=== PATIENT | female | born 1970 | race Caucasian/White ===

== ENCOUNTER 2022-04-26 22:55 | Emergency (ER) | payer BC ==
[2022-04-26 23:52] VITALS: RESP 18; TEMP 98.1
[2022-04-26] MEDS ORDERED: PROCHLORPERAZINE 5 MG TAB PO STA (23:57)
[2022-04-26] MEDS ORDERED: ETODOLAC 400 MG TAB PO STA (23:57)
[2022-04-26] MEDS ORDERED: lisinopriL 10 MG TAB PO STA (23:57)
[2022-04-26] MEDS ORDERED: diphenhydrAMINE 50 MG CAP PO STA (23:57)
--- NOTE | 2022-04-26 23:58 | ED ---
Headache HPI - General Chief Complaint: Headache Stated Complaint: Headache, High Blood Pressure Time Seen by Provider: 04/26/22 23:56 Source: RN notes reviewed, old records reviewed Mode of arrival: ambulatory Limitations: no limitations - History of Present Illness Initial Comments: This is a 51-year-old female presents today for evaluation of headache she does have history of headaches but states very mildly worse started on low-dose to work and normal on the lawn earlier in the day. Patient does have blood pressure cuff at home due to her daughter have high blood pressure and her significant other having high blood pressure patient was presents here with elevated blood pressure headache. No nausea vomiting no neurological complaints and this is not the worse headache of her life. Patient believes she has had elevated blood pressure in the past she is just nervous started on medications. MD Complaint: headache -: unknown Onset Description: gradual Location: right, left, frontal Severity: mild Severity scale (1-10): 3 Quality: aching, pulsatile Consistency: intermittent Improves With: nothing Worsens With: none Context: recent URI Associated Symptoms: nausea Other Symptoms: eye pain/redness Treatments Prior to Arrival: none - Related Data Previous Rx's Medication Instructions Recorded Lisinopril [Prinivil] 10 mg PO DAILY #60 tab 04/27/22 Allergies Allergy/AdvReac Type Severity Reaction Status Date / Time Sulfa (Sulfonamide Allergy Rash/Hives Verified 04/26/22 23:52 Antibiotics) Review of Systems ROS Statement: Those systems with pertinent positive or pertinent negative responses have been documented in the HPI. ROS Other: All systems not noted in ROS Statement are negative. Past Medical History Past Medical History: Asthma, Thyroid Disorder History of Any Multi-Drug Resistant Organisms: None Reported Past Surgical History: Breast Surgery Past Psychological History: No Psychological Hx Reported Smoking Status: Never smoker Past Alcohol Use History: None Reported Past Drug Use History: None Reported General Exam General appearance: alert, in no apparent distress Head exam: Present: atraumatic, normocephalic, normal inspection Eye exam: Present: normal appearance, PERRL, EOMI. Absent: scleral icterus, conjunctival injection, periorbital swelling ENT exam: Present: normal exam, mucous membranes moist Neck exam: Present: normal inspection. Absent: tenderness, meningismus, lymphadenopathy Respiratory exam: Present: normal lung sounds bilaterally. Absent: respiratory distress, wheezes, rales, rhonchi, stridor Cardiovascular Exam: Present: regular rate, normal rhythm, normal heart sounds. Absent: systolic murmur, diastolic murmur, rubs, gallop, clicks GI/Abdominal exam: Present: soft, normal bowel sounds. Absent: distended, tenderness, guarding, rebound, rigid Extremities exam: Present: normal inspection, full ROM, normal capillary refill. Absent: tenderness, pedal edema, joint swelling, calf tenderness Back exam: Present: normal inspection Neurological exam: Present: alert, oriented X3, CN II-XII intact Psychiatric exam: Present: normal affect, normal mood Skin exam: Present: warm, dry, intact, normal color. Absent: rash Course Vital Signs 04/26/22 04/27/22 04/27/22 23:49 01:06 01:18 Temperature 98.1 F Pulse Rate 94 84 78 Respiratory 18 18 18 Rate Blood Pressure 202/101 166/95 141/90 O2 Sat by Pulse 98 96 Oximetry - Reevaluation(s) Reevaluation #1: 04/27/22 01:00 Medical record is reviewed Reevaluation #2: 04/27/22 01:00 Patient feels significantly improved here in the ER both headache and blood pressure Reevaluation #3: 04/27/22 01:00 Patient informed of results and questions answered Medical Decision Making - Medical Decision Making 51 female to the emergency department for evaluation of headache with elevated blood pressure. Headache now improved lab values EKG are negative. Patient's blood pressures improved and she feels improved for discharge home, patient states she needs a primary care physician - Lab Data Result diagrams: 04/27/22 00:06 04/27/22 00:06 Lab Results 04/27/22 04/27/22 04/27/22 Range/Units 00:06 00:06 00:06 WBC 10.1 (3.8-10.6) k/uL RBC 5.08 (3.80-5.40) m/uL Hgb 12.1 (11.4-16.0) gm/dL Hct 39.6 (34.0-46.0) % MCV 77.9 L (80.0-100.0) fL MCH 23.8 L (25.0-35.0) pg MCHC 30.5 L (31.0-37.0) g/dL RDW 18.4 H (11.5-15.5) % Plt Count 262 (150-450) k/uL MPV 8.2 Neutrophils % 65 % Lymphocytes % 25 % Monocytes % 5 % Eosinophils % 2 % Basophils % 1 % Neutrophils # 6.5 (1.3-7.7) k/uL Lymphocytes # 2.6 (1.0-4.8) k/uL Monocytes # 0.5 (0-1.0) k/uL Eosinophils # 0.2 (0-0.7) k/uL Basophils # 0.1 (0-0.2) k/uL Hypochromasia Slight Anisocytosis Slight Microcytosis Slight Sodium 137 (137-145) mmol/L Potassium 3.6 (3.5-5.1) mmol/L Chloride 105 (98-107) mmol/L Carbon Dioxide 24 (22-30) mmol/L Anion Gap 8 mmol/L BUN 18 H (7-17) mg/dL Creatinine 0.93 (0.52-1.04) mg/dL Est GFR (CKD-EPI)AfAm 83 (>60 ml/min/1.73 sqM) Est GFR (CKD-EPI)NonAf 72 (>60 ml/min/1.73 sqM) Glucose 84 (74-99) mg/dL Calcium 9.0 (8.4-10.2) mg/dL Phosphorus 3.7 (2.5-4.5) mg/dL Magnesium 2.0 (1.6-2.3) mg/dL Total Bilirubin 0.3 (0.2-1.3) mg/dL AST 22 (14-36) U/L ALT 20 (4-34) U/L Alkaline Phosphatase 49 (38-126) U/L Troponin I <0.012 (0.000-0.034) ng/mL Total Protein 7.0 (6.3-8.2) g/dL Albumin 4.3 (3.5-5.0) g/dL TSH 2.090 (0.465-4.680) mIU/L Urine Color Urine Appearance (Clear) Urine pH (5.0-8.0) Ur Specific [place] (1.001-1.035) Urine Protein (Negative) Urine Glucose (UA) (Negative) Urine Ketones (Negative) Urine Blood (Negative) Urine Nitrite (Negative) Urine Bilirubin (Negative) Urine Urobilinogen (<2.0) mg/dL Ur Leukocyte Esterase (Negative) Urine RBC (0-5) /hpf Urine WBC (0-5) /hpf Ur Squamous Epith Cells (0-4) /hpf Amorphous Sediment (None) /hpf Urine Mucus (None) /hpf 04/27/22 Range/Units 00:59 WBC (3.8-10.6) k/uL RBC (3.80-5.40) m/uL Hgb (11.4-16.0) gm/dL Hct (34.0-46.0) % MCV (80.0-100.0) fL MCH (25.0-35.0) pg MCHC (31.0-37.0) g/dL RDW (11.5-15.5) % Plt Count (150-450) k/uL MPV Neutrophils % % Lymphocytes % % Monocytes % % Eosinophils % % Basophils % % Neutrophils # (1.3-7.7) k/uL Lymphocytes # (1.0-4.8) k/uL Monocytes # (0-1.0) k/uL Eosinophils # (0-0.7) k/uL Basophils # (0-0.2) k/uL Hypochromasia Anisocytosis Microcytosis Sodium (137-145) mmol/L Potassium (3.5-5.1) mmol/L Chloride (98-107) mmol/L Carbon Dioxide (22-30) mmol/L Anion Gap mmol/L BUN (7-17) mg/dL Creatinine (0.52-1.04) mg/dL Est GFR (CKD-EPI)AfAm (>60 ml/min/1.73 sqM) Est GFR (CKD-EPI)NonAf (>60 ml/min/1.73 sqM) Glucose (74-99) mg/dL Calcium (8.4-10.2) mg/dL Phosphorus (2.5-4.5) mg/dL Magnesium (1.6-2.3) mg/dL Total Bilirubin (0.2-1.3) mg/dL AST (14-36) U/L ALT (4-34) U/L Alkaline Phosphatase (38-126) U/L Troponin I (0.000-0.034) ng/mL Total Protein (6.3-8.2) g/dL Albumin (3.5-5.0) g/dL TSH (0.465-4.680) mIU/L Urine Color Yellow Urine Appearance Cloudy H (Clear) Urine pH 6.5 (5.0-8.0) Ur Specific [place] 1.020 (1.001-1.035) Urine Protein Trace H (Negative) Urine Glucose (UA) Negative (Negative) Urine Ketones Negative (Negative) Urine Blood Moderate H (Negative) Urine Nitrite Negative (Negative) Urine Bilirubin Negative (Negative) Urine Urobilinogen <2.0 (<2.0) mg/dL Ur Leukocyte Esterase Negative (Negative) Urine RBC 2 (0-5) /hpf Urine WBC 3 (0-5) /hpf Ur Squamous Epith Cells 7 H (0-4) /hpf Amorphous Sediment Rare H (None) /hpf Urine Mucus Rare H (None) /hpf - EKG Data -: EKG Interpreted by Me (EKG is sinus rhythm 88 [address] 207 QRS 107 QTC 4:30) Disposition Clinical Impression: Hypertension Disposition: HOME SELF-CARE Condition: Good Instructions (If sedation given, give patient instructions): Hypertension (ED) Prescriptions: Lisinopril [Prinivil] 10 mg PO DAILY #60 tab Is patient prescribed a controlled substance at d/c from ED?: No Referrals: Angely Weathers DO [Primary Care Provider] - 1-2 days Haider Rosales MD [STAFF PHYSICIAN] - 1-2 days Augustin Villalpando MD [REFERRING] - 1-2 days Time of Disposition: 01:10
[2022-04-27 00:17] LABS: Anisocytosis Slight; Basophils # (A) 0.1 k/uL (0-0.2); Basophils % (A) 1 %; Eosinophils # (A) 0.2 k/uL (0-0.7); Eosinophils % (A) 2 %; HCT 39.6 % (34.0-46.0); HGB 12.1 gm/dL (11.4-16.0); Hypochromasia Slight; Lymphocytes # (A) 2.6 k/uL (1.0-4.8); Lymphocytes % (A) 25 %; MCH 23.8 pg (25.0-35.0); MCHC 30.5 g/dL (31.0-37.0); MCV 77.9 fL (80.0-100.0); Mean Platelet Volume 8.2; Microcytosis Slight; Monocytes # (A) 0.5 k/uL (0-1.0); Monocytes % (A) 5 %; Neutrophils # (A) 6.5 k/uL (1.3-7.7); Neutrophils % (A) 65 %; Platelet Count 262 k/uL (150-450); RBC 5.08 m/uL (3.80-5.40); RDW 18.4 % (11.5-15.5); WBC 10.1 k/uL (3.8-10.6)
[2022-04-27 00:27] LABS: Albumin 4.3 g/dL (3.5-5.0); Phosphorus 3.7 mg/dL (2.5-4.5); Potassium 3.6 mmol/L (3.5-5.1); Total Bilirubin 0.3 mg/dL (0.2-1.3)
[2022-04-27 01:24] LABS: Amorphous Sediment,Urine Rare /hpf; Appearance,Urine Cloudy (Clear); Bilirubin,Urine Negative (Negative); Blood,Urine Moderate (Negative); Color,Urine Yellow; Glucose,Urine (UA) Negative (Negative); Ketones,Urine Negative (Negative); Leukocyte Esterase,Urine Negative (Negative); Mucus,Urine Rare /hpf; Nitrite,Urine Negative (Negative); PH, Urine 6.5 (5.0-8.0); Protein,Urine Trace (Negative); RBC,Urine 2 /hpf (0-5); Squamous Epithelial Cell,Urine 7 /hpf (0-4); Urobilinogen,Urine <2.0 mg/dL (<2.0); WBC,Urine 3 /hpf (0-5)
[2022-04-27 02:03] VITALS: BP 151/93; PULSE 79
== END 2022-04-27 01:39 | disposition home or self-care (01) ==
LOC: EC 22:55
DX: I10 Essential (primary) hypertension (principal); R51.9 Headache, unspecified; J45.909 Unspecified asthma, uncomplicated; Z88.2 Allergy status to sulfonamides; R11.0 Nausea
CPT/HCPCS: 36415; 93005; 80053; 83735; 84100; 84443; 84484; 85025; 81001; 99284; S0183

== ENCOUNTER 2022-10-29 01:37 | Emergency (ER) | payer BC ==
[2022-10-29 02:06] VITALS: RESP 18
--- NOTE | 2022-10-29 03:46 | ED ---
Extremity Problem HPI - General Chief complaint: Extremity Problem,Nontraumatic Stated complaint: Left Elbow Pain Time Seen by Provider: 10/29/22 03:14 Source: patient, RN notes reviewed Mode of arrival: ambulatory Limitations: no limitations - History of Present Illness Initial comments: This is a pleasant 52-year-old female presents to emergency department complaining of pain to her left elbow. Patient states this started about 3 days ago. Patient then states she got some swelling to her left hand. Patient does have a history of lymphedema secondary to lymph node dissection of her left axilla from breast cancer. Patient denying any pain to her upper arm or forearm area. Patient denying any known injury or repetitive use. Patient is left-hand dominant. Patient pointing to the area of the lateral upper condyle. Pain is exacerbated by palpation and movement, alleviated by rest. No headache, no fever or chills, no changes in vision or hearing, no sore throat or difficulty with speech, no neck pain, no chest pain or shortness of breath, no abdominal pain, no nausea or vomiting, no changes in urination or bowel movements, no numbness or tingling, , no skin rashes or lesions. Patient states she also has swelling to her hand. No erythema. No rashes or lesions Past medical, surgical, social, and family history reviewed. MD Complaint: extremity pain, extremity swelling - Related Data Previous Rx's Medication Instructions Recorded lisinopriL [Prinivil] 10 mg PO DAILY #60 tab 04/27/22 methylPREDNISolone Dose Pack 4 mg PO DIRECTED #21 tab 10/29/22 [Medrol Dose Pack] Allergies Allergy/AdvReac Type Severity Reaction Status Date / Time Sulfa (Sulfonamide Allergy Rash/Hives Verified 10/29/22 02:06 Antibiotics) Review of Systems ROS Statement: Those systems with pertinent positive or pertinent negative responses have been documented in the HPI. ROS Other: All systems not noted in ROS Statement are negative. Past Medical History Past Medical History: Asthma, Thyroid Disorder Additional Past Medical History / Comment(s): lympadema History of Any Multi-Drug Resistant Organisms: None Reported Past Surgical History: Breast Surgery Past Psychological History: Depression Smoking Status: Never smoker Past Alcohol Use History: Rare Past Drug Use History: None Reported General Exam Limitations: no limitations General appearance: alert, in no apparent distress Head exam: Present: atraumatic, normocephalic, normal inspection Eye exam: Present: normal appearance, EOMI Neck exam: Present: normal inspection, full ROM. Absent: lymphadenopathy Respiratory exam: Present: normal lung sounds bilaterally. Absent: respiratory distress, wheezes, rales, rhonchi, stridor, chest wall tenderness, accessory muscle use Cardiovascular Exam: Present: regular rate, normal rhythm, normal heart sounds. Absent: systolic murmur, diastolic murmur, rubs, gallop, clicks GI/Abdominal exam: Present: soft. Absent: tenderness Left Shoulder Exam: Present: normal inspection, full ROM. Absent: tenderness Upper Arm exam: Present: normal inspection. Absent: tenderness, swelling Elbow exam: Present: full ROM, tenderness (Patient has tenderness over the lateral upper condyle and proximal forearm extensors, no erythema, no break in skin integrity, no rash or lesion). Absent: swelling, abrasion, laceration, ecchymosis, deformity, crepitus, dislocation, erythema, effusion, tenderness over radial head Forearm Wrist exam: Present: tenderness (Proximal forearm extensors near the lateral upper condyle). Absent: swelling, abrasion, laceration, ecchymosis, crepitus, dislocation, erythema, tenderness over anatomical snuff box Hand Wrist exam: Present: full ROM, swelling (Patient has swelling noted to the left hand. No erythema or infectious process noted). Absent: tenderness, abrasion, laceration, ecchymosis, deformity, crepitus, dislocation, erythema, amputation, nail avulsion, subungual hematoma Neuro motor exam: Present: wrist extension intact, thumb opposition intact, thumb IP flexion intact, thumb adduction intact, fingers 2-5 abduction intact Neurosensory exam: Present: radial nerve intact, ulnar nerve intact, median nerv e intact Vascular: Present: normal capillary refill. Absent: vascular compromise, Pallo, pulse deficit radial art, pulse deficit ulnar art Neurological exam: Present: alert, oriented X3, CN II-XII intact, normal gait. Absent: motor sensory deficit Psychiatric exam: Present: normal affect, normal mood Skin exam: Present: warm, dry, intact, normal color. Absent: rash Course Vital Signs 10/29/22 10/29/22 02:02 03:56 Temperature 97.5 F L 98.6 F Pulse Rate 80 76 Respiratory 18 18 Rate Blood Pressure 142/91 129/87 O2 Sat by Pulse 98 94 L Oximetry Medical Decision Making - Medical Decision Making Differential diagnosis: Lateral epicondylitis, radial tunnel syndrome, worsening lymphedema, this does not appear to be consistent with DVT. Does not appear to be consistent with infectious process. Patient's clinical findings somewhat consistent with lateral epicondylitis. Although radial tunnel syndrome is a possibility. We will have the patient follow-up with orthopedics. Discussed treatment plan with the patient. Patient concurs with this treatment plan. Will provide a short course of corticosteroids. Plain film x-rays ordered. We'll plan to treat conservatively with anti- inflammatory medication. Patient was told to return to the ER for any signs or symptoms worsen. Told to return immediately if any other problems arise. All questions answered. Treatment plan discussed. Patient in agreement Every effort has been made to ensure accuracy of this dictation. However, due to the limitations of electronic medical records and dictation devices, errors in charting still occur. Supervising physician Dr. Carbajal - Radiology Data Radiology results: pending, image reviewed Plain film x-rays of the left elbow and left forearm independently interpreted by me reveal no evidence of acute pathology. Radiology report is delayed. Disposition Clinical Impression: Radial tunnel syndrome of left upper extremity Disposition: HOME SELF-CARE Condition: Stable Instructions (If sedation given, give patient instructions): Tennis Elbow (ED), How to Use a Sling (ED) Additional Instructions: Follow-up with your regular physician as directed. Return to the ER immediately if any symptoms worsen, new symptoms arise, or any other problems develop. Prescriptions: methylPREDNISolone Dose Pack [Medrol Dose Pack] 4 mg PO DIRECTED #21 tab Is patient prescribed a controlled substance at d/c from ED?: No Referrals: Abraham Montilla MD [STAFF PHYSICIAN] - 10/31/22 Time of Disposition: 04:01
[2022-10-29] MEDS ORDERED: predniSONE 50 MG TAB PO STA (03:56)
[2022-10-29 03:57] VITALS: BP 129/87; PULSE 76; TEMP 98.6
[2022-10-29] MEDS ORDERED: HYDROcodone/APAP 5-325MG 1 EACH TAB PO STA (03:58)
[2022-10-29] MEDS ORDERED: ACET/COD 300 MG/30 MG STARTER PACK 6 TAB BTL PO STA (03:59)
--- NOTE | 2022-10-29 04:58 | XR ---
EXAMINATION TYPE: XR forearm LT DATE OF EXAM: 10/29/2022 COMPARISON: NONE HISTORY: Pain TECHNIQUE: 2 views FINDINGS: Radius and ulna appear intact. There is no evidence of fracture nor dislocation. Wrist join t is intact. IMPRESSION: Negative left forearm exam.
--- NOTE | 2022-10-29 04:58 | XR ---
EXAMINATION TYPE: XR elbow complete LT DATE OF EXAM: 10/29/2022 COMPARISON: NONE HISTORY: Pain and swelling TECHNIQUE: 3 views FINDINGS: I see no fracture nor dislocation. Joint spaces are normal. No sign of elbow joint effusion . IMPRESSION: Negative left elbow exam. No fracture.
== END 2022-10-29 04:09 | disposition home or self-care (01) ==
LOC: EC 01:37
DX: G56.32 Lesion of radial nerve, left upper limb (principal); F32.A Depression, unspecified; J45.909 Unspecified asthma, uncomplicated; Z88.2 Allergy status to sulfonamides
CPT/HCPCS: 73080; 73090; 99283; J7512

== ENCOUNTER → 2023-04-18 | Outpatient (CLI) | payer BC ==
--- NOTE | 2023-04-19 08:18 | MR ---
EXAMINATION TYPE: MR knee RT wo con DATE OF EXAM: 04/18/2023 COMPARISON: HISTORY: Right knee pain after jogging. TECHNIQUE: Multiplanar, multisequence imaging of the right knee is performed without IV contrast. FINDINGS: MEDIAL MENISCUS: Anterior and posterior horns are intact without tear. LATERAL MENISCUS: Anterior and posterior horns are intact without tear. CRUCIATE LIGAMENTS: The anterior and posterior cruciate ligaments are intact and unremarkable. COLLATERAL LIGAMENTS: The medial collateral ligament and lateral collateral ligament complex are inta ct and unremarkable. EXTENSOR MECHANISM: Visualized quadriceps and patellar tendons are intact. EFFUSION: Small joint effusion present. POPLITEAL CYST: No popliteal/tanner cyst. TRICOMPARTMENT SPACES: Mild degenerative narrowing medial patellofemoral joint space as well as the p atellofemoral joint space. CARTILAGE: Intact BONE MARROW SIGNAL: No focal abnormal marrow signal is appreciated. OTHER: No additional significant abnormality is appreciated. IMPRESSION: 1. No evidence for internal derangement. 2. Degenerative changes of osteoarthritis. Small joint effusion.
== END | disposition home or self-care (01) ==
LOC: RADMRIMAIN 14:14
PROVIDERS: ATTEND Internal Medicine
DX: M17.11 Unilateral primary osteoarthritis, right knee (principal); M25.461 Effusion, right knee

== ENCOUNTER → 2023-05-08 | Outpatient (CLI) | payer BC ==
[2023-05-08 21:33] LABS: T4, Free (Free Thyroxine) 1.43 ng/dL (0.80-1.80)
== END | disposition home or self-care (01) ==
LOC: LABWHC1 11:49
PROVIDERS: ATTEND Internal Medicine
DX: E03.9 Hypothyroidism, unspecified (principal)
CPT/HCPCS: 36415; 84439; 84443

== ENCOUNTER → 2023-10-17 | Outpatient (CLI) | payer BC ==
[2023-10-17 22:58] LABS: Basophils # (A) 0.07 X 10*3/uL (0.00-0.10); Basophils % (A) 1.1 %; Eosinophils # (A) 0.18 X 10*3/uL (0.04-0.35); Eosinophils % (A) 2.9 %; HCT 43.6 % (37.2-46.3); HGB 14.7 g/dL (12.0-15.0); Lymphocytes # (A) 1.79 X 10*3/uL (0.90-5.00); Lymphocytes % (A) 29.2 %; MCHC 33.7 g/dL (32.0-37.0); Mean Platelet Volume 10.6 FL (9.5-12.2); Monocytes # (A) 0.27 X 10*3/uL (0.20-1.00); Monocytes % (A) 4.4 %; NRBC Per 100 WBC 0 X 10*3/uL (0.00-0.01); Neutrophils # (A) 3.79 X 10*3/uL (1.80-7.70); Neutrophils % (A) 62.1 %; Platelet Count 240 X 10*3/uL (140-440); RDW 14.1 % (11.5-14.5); WBC 6.12 X 10*3/uL (4.50-10.00)
[2023-10-17 23:22] LABS: % Iron Saturation 22.58 (12.00-45.00); ALT 41 U/L (8-44); AST 27 U/L (13-35); Albumin 4.6 g/dL (3.8-4.9); Albumin/Globulin Ratio 1.84 Ratio (1.60-3.17); Alkaline Phosphatase 53 U/L (41-126); BUN/Creat Ratio 12.89 Ratio (12.00-20.00); Blood Urea Nitrogen 11.6 mg/dL (9.0-27.0); Calcium 9.9 mg/dL (8.7-10.3); Carbon Dioxide 24.3 mmol/L (21.6-31.8); Chloride 104 mmol/L (96-109); Chol/HDL Ratio 4.38 Ratio; Globulin 2.5 g/dL (1.6-3.3); Glucose 113 mg/dL (70-110); Iron 91 UG/DL (50-170); LDL Cholesterol,Calculated 101.2 mg/dL (0.0-131.0); Potassium 4.6 mmol/L (3.5-5.5); Sodium 141 mmol/L (135-145); T4, Free (Free Thyroxine) 1.31 ng/dL (0.80-1.80); Total Bilirubin 0.5 mg/dL (0.3-1.2); Total Iron Binding Capacity 403 UG/DL (228-460); Total Protein 7.1 g/dL (6.2-8.2)
== END | disposition home or self-care (01) ==
LOC: LABWHC1 09:31
PROVIDERS: ATTEND Internal Medicine
DX: I10 Essential (primary) hypertension (principal); D64.9 Anemia, unspecified; E03.9 Hypothyroidism, unspecified
CPT/HCPCS: 36415; 80053; 80061; 82607; 82728; 82746; 83540; 83550; 84439; 84443; 85025

== ENCOUNTER → 2023-11-10 | Outpatient (CLI) | payer BC ==
[2023-11-10 14:56] LABS: HCT 42.1 % (37.2-46.3); HGB 14.5 g/dL (12.0-15.0); MCHC 34.4 g/dL (32.0-37.0); Mean Platelet Volume 10.3 FL (9.5-12.2); NRBC Per 100 WBC 0 X 10*3/uL (0.00-0.01); Platelet Count 228 X 10*3/uL (140-440); RBC 4.84 X 10*6/uL (4.10-5.20)
[2023-11-10 14:57] LABS: Basophils # (A) 0.08 X 10*3/uL (0.00-0.10); Basophils % (A) 1.1 %; Eosinophils # (A) 0.26 X 10*3/uL (0.04-0.35); Eosinophils % (A) 3.6 %; Lymphocytes % (A) 31.5 %; Monocytes # (A) 0.51 X 10*3/uL (0.20-1.00); Neutrophils # (A) 4.12 X 10*3/uL (1.80-7.70); Neutrophils % (A) 56.4 %
[2023-11-10 15:14] LABS: BUN/Creat Ratio 19.12 Ratio (12.00-20.00); Blood Urea Nitrogen 15.3 mg/dL (9.0-27.0); Glucose 114 mg/dL (70-110)
[2023-11-10 15:15] LABS: ALT 31 U/L (8-44); AST 19 U/L (13-35); Albumin 4.4 g/dL (3.8-4.9); Albumin/Globulin Ratio 1.91 Ratio (1.60-3.17); Alkaline Phosphatase 51 U/L (41-126); Calcium 9.5 mg/dL (8.7-10.3); Carbon Dioxide 23.7 mmol/L (21.6-31.8); Chloride 105 mmol/L (96-109); Globulin 2.3 g/dL (1.6-3.3); Potassium 4.6 mmol/L (3.5-5.5); Sodium 140 mmol/L (135-145); Total Bilirubin 0.4 mg/dL (0.3-1.2); Total Protein 6.7 g/dL (6.2-8.2)
== END | disposition home or self-care (01) ==
LOC: LABWHC1 10:33
PROVIDERS: ATTEND Internal Medicine Hematology & Oncology
DX: C50.919 Malignant neoplasm of unspecified site of unspecified female breast (principal)
CPT/HCPCS: 36415; 80053; 85025; 86300

== ENCOUNTER → 2024-11-21 | Outpatient (CLI) | payer BC ==
--- NOTE | 2024-11-21 17:26 | XR ---
EXAMINATION TYPE: XR chest 2V DATE OF EXAM: 11/21/2024 5:14 PM COMPARISON: None. CLINICAL INDICATION: Female, 54 years old with history of R07.89, R05.8, TECHNIQUE: Frontal and lateral views of the chest are obtained. FINDINGS: There is no focal air space opacity, pleural effusion, or pneumothorax seen. The cardiac silhouette size is within normal limits. The osseous structures are intact. IMPRESSION: No acute cardiopulmonary process. [facility], , 11/21/2024 5:24 PM
== END | disposition home or self-care (01) ==
LOC: RADXRMAIN 17:01 → MERGE 17:01
PROVIDERS: ATTEND Family Medicine
DX: R07.89 Other chest pain (principal); R05.8 Other specified cough
CPT/HCPCS: 71046

== ENCOUNTER → 2025-06-14 | Outpatient (CLI) | payer BC ==
[2025-06-14 15:24] LABS: ALT 40 U/L (8-44); AST 26 U/L (13-35); Albumin 4.4 g/dL (3.8-4.9); Albumin/Globulin Ratio 2.20 Ratio (1.60-3.17); Alkaline Phosphatase 55 U/L (41-126); Anion Gap 12.50 mmol/L (4.00-12.00); BUN/Creat Ratio 16.56 Ratio (12.00-20.00); Blood Urea Nitrogen 14.9 mg/dL (9.0-27.0); Calcium 9.3 mg/dL (8.7-10.3); Carbon Dioxide 24.5 mmol/L (21.6-31.8); Chloride 106 mmol/L (96-109); Globulin 2.0 g/dL (1.6-3.3); Glucose 121 mg/dL (70-110); Potassium 4.2 mmol/L (3.5-5.5); Sodium 143 mmol/L (135-145); Total Protein 6.4 g/dL (6.2-8.2)
[2025-06-14 15:26] LABS: Basophils # (A) 0.10 X 10*3/uL (0.00-0.10); Basophils % (A) 1.4 %; Eosinophils # (A) 0.34 X 10*3/uL (0.04-0.35); Eosinophils % (A) 4.7 %; HCT 38.7 % (37.2-46.3); HGB 13.3 g/dL (12.0-15.0); Immature Grans, Automated 0.30 %; Lymphocytes # (A) 2.63 X 10*3/uL (0.90-5.00); Lymphocytes % (A) 36.3 %; MCH 30.5 pg (27.0-32.0); MCHC 34.4 g/dL (32.0-37.0); MCV 88.8 FL (80.0-97.0); Monocytes # (A) 0.56 X 10*3/uL (0.20-1.00); Monocytes % (A) 7.7 %; NRBC Per 100 WBC 0 X 10*3/uL (0.00-0.01); Neutrophils # (A) 3.59 X 10*3/uL (1.80-7.70); Neutrophils % (A) 49.6 %; Platelet Count 251 X 10*3/uL (140-440); RBC 4.36 X 10*6/uL (4.10-5.20); RDW 14.0 % (11.5-14.5); WBC 7.24 X 10*3/uL (4.50-10.00)
[2025-06-14 19:22] LABS: Cancer Antigen 153 9.0 U/mL (0.0-32.3)
== END | disposition home or self-care (01) ==
LOC: LABWHC1 08:48
PROVIDERS: ATTEND Internal Medicine Hematology & Oncology
DX: C50.919 Malignant neoplasm of unspecified site of unspecified female breast (principal); D64.9 Anemia, unspecified
CPT/HCPCS: 36415; 80053; 85025; 86300